=== PATIENT | female | born 1940 | race Caucasian/White ===

== ENCOUNTER 2018-06-15 21:41 | Emergency (ER) | payer OTHER ==
[~2018-06-15] VITALS: Ht 154.9 cm; Wt 47.6 kg
[2018-06-15 22:04] VITALS: BP_SYST 149
[2018-06-15] MEDS ORDERED: BACITRACIN 1 GM OINT TP ONE (22:30)
[2018-06-15] MEDS ORDERED: DIPH-TET-PERTUS Vaccine 0.5 ML VIAL (ADACEL) IM ONE (22:30)
[2018-06-15] MEDS ORDERED: LIDOCAINE/EPI 1% 1:100000 20 ML VIAL IJ ONE (22:30)
[2018-06-16 01:00] VITALS: BP_SYST 132
== END 2018-06-16 01:00 | disposition home or self-care (01) ==
LOC: SED 21:41
DX: S01.111A Laceration without foreign body of right eyelid and periocular area, initial encounter (principal); S51.811A Laceration without foreign body of right forearm, initial encounter; S46.911A Strain of unspecified muscle, fascia and tendon at shoulder and upper arm level, right arm, initial encounter; G20 Parkinson's disease; I10 Essential (primary) hypertension; W19.XXXA Unspecified fall, initial encounter; Y93.89 Activity, other specified; Y92.89 Other specified places as the place of occurrence of the external cause; Y99.8 Other external cause status
CPT/HCPCS: 70450-TC; 73060-TC; 90715; 99284

== ENCOUNTER 2018-10-03 22:52 | Emergency (ER) | payer OTHER ==
[~2018-10-03] VITALS: Ht 162.6 cm; Wt 54.4 kg
[2018-10-03 22:52] VITALS: BP_SYST 174
[2018-10-03] MEDS ORDERED: AMAN100C16 PO (23:16)
[2018-10-03] MEDS ORDERED: AMLO5TAB4 PO (23:17)
[2018-10-03] MEDS ORDERED: LIP10 PO (23:18)
[2018-10-03] MEDS ORDERED: BUPR-84 PO (23:19)
[2018-10-03] MEDS ORDERED: CARB-64 PO (23:20)
[2018-10-03] MEDS ORDERED: IBUP-1969 PO (23:21)
[2018-10-03] MEDS ORDERED: DOCU-144 PO (23:21)
[2018-10-03] MEDS ORDERED: METO-542 (23:23)
[2018-10-03] MEDS ORDERED: RASA1TAB4 PO (23:24)
[2018-10-03] MEDS ORDERED: NACL 0.9% 500 ML IV ONE (23:30)
[2018-10-03] MEDS ORDERED: REM15 PO (23:32)
[2018-10-03] MEDS ORDERED: ROPI4TAB3 PO (23:33)
[2018-10-03] MEDS ORDERED: CYAN1TAB47 PO (23:34)
[2018-10-03] MEDS ORDERED: CHOL100062 PO (23:35)
[2018-10-03] MEDS ORDERED: ZOLP5TAB2 PO (23:36)
[2018-10-04 00:15] LABS: BASOPHILS % (AUTO) 0.4 % (0.0-2.0); EOSINOPHILS # (AUTO) 0.2 K/uL (0.0-0.4); EOSINOPHILS % (AUTO) 3.1 % (0.0-4.0); HEMATOCRIT 41.5 % (36-48); HEMOGLOBIN 13.8 g/dL (12.0-16.0); LYMPHOCYTES # (AUTO) 1.2 K/uL (1.0-5.5); LYMPHOCYTES % (AUTO) 18.1 % (20.5-51.5); MEAN CORPUSCULAR HEMOGLOBIN 31 pg (27-31); MEAN CORPUSCULAR HGB CONC 33 % (32-36); MEAN CORPUSCULAR VOLUME 92 fL (79.0-98.0); MONOCYTES # (AUTO) 0.6 K/uL (0.0-1.0); MONOCYTES % (AUTO) 9.8 % (1.7-9.3); NEUTROPHILS # (AUTO) 4.4 K/uL (1.8-7.7); NEUTROPHILS % (AUTO) 68.6 % (40.0-70.0); PLATELET COUNT (AUTO) 190 K/uL (130-430); RED CELL DISTRIBUTION WIDTH 13.9 % (9.0-15.0); WHITE BLOOD COUNT (AUTO) 6.4 K/uL (4.8-10.8)
[2018-10-04 00:36] LABS: INR 0.9 (0.8-1.2); PROTHROMBIN TIME 9.7 SECS (9.5-12.5)
[2018-10-04 00:44] LABS: ANION GAP 5 (5-15); CALCIUM 9.5 mg/dL (8.4-11.0); CHLORIDE 108 mmol/L (98-107); CREATININE 0.94 mg/dL (0.55-1.30); GLUCOSE 104 mg/dL (70-99); POTASSIUM 3.8 mmol/L (3.5-5.1); SODIUM SERUM 141 mmol/L (136-145); UREA NITROGEN, BLOOD 18 mg/dL (8-21)
[2018-10-04 00:49] LABS: ALANINE AMINOTRANSFERASE 14 U/L (12-78); ALBUMIN 3.7 g/dL (3.4-4.8); ASPARTATE AMINOTRANSFERASE 14 U/L (10-37); TOTAL BILIRUBIN 0.4 mg/dL (0.0-1.0)
[2018-10-04 01:09] LABS: BILIRUBIN,URINE NEGATIVE (NEGATIVE); BLOOD, URINE NEGATIVE (NEGATIVE); CLARITY/URINE CLEAR (CLEAR); COLOR,URINE YELLOW (YELLOW); GLUCOSE,URINE NEGATIVE (NEGATIVE); KETONES,URINE NEGATIVE (NEGATIVE); LEUKOCYTE ESTERASE ,URINE NEGATIVE (NEGATIVE); NITRITE, URINE NEGATIVE (NEGATIVE); PROTEIN URINE NEGATIVE (NEGATIVE); UROBILINOGEN,URINE 0.2 (0.2-1.0)
[2018-10-04 01:27] VITALS: BP_SYST 164
== END 2018-10-04 01:27 ==
LOC: SED 22:52
DX: S00.81XA Abrasion of other part of head, initial encounter (principal); I13.0 Hypertensive heart and chronic kidney disease with heart failure and stage 1 through stage 4 chronic kidney disease, or unspecified chronic kidney disease; R79.1 Abnormal coagulation profile; N18.3 Chronic kidney disease, stage 3 (moderate); Z79.899 Other long term (current) drug therapy; W01.0XXA Fall on same level from slipping, tripping and stumbling without subsequent striking against object, initial encounter; Y93.01 Activity, walking, marching and hiking; Y92.89 Other specified places as the place of occurrence of the external cause; Y99.8 Other external cause status
CPT/HCPCS: 36415; 70450; 72125; 80053; 81003; 85025; 85610; 85730; 99285; J7030; 93005

== ENCOUNTER 2019-03-25 18:30 | Inpatient (IN) | payer MEDICARE, OTHER ==
[~2019-03-25] VITALS: Ht 165.1 cm; Wt 54.4 kg
[2019-03-25 18:30] VITALS: BP_SYST 167
[~2019-03-25 18:30] MED LIST: AMAN100C16 PO; AMLO5TAB4 PO; BUPR-84 PO; CARB-64 PO; CHOL100062 PO; CYAN1TAB47 PO; DOCU-144 PO; IBUP-1969 PO; LIP10 PO; METO-542; RASA1TAB4 PO; REM15 PO; ROPI4TAB3 PO; ZOLP5TAB2 PO
--- NOTE | 2019-03-25 18:30 | NUR ---
Patient brought in by EMS from [facility] for severe respiratory distress. Per EMS, while at [facility] [place] in [facility], patient began having respiratory dress. patient is tachycardic, with rhonchi auscultated throughout. RT at bedside. MD at bedside.
--- NOTE | 2019-03-25 18:30 | NUR ---
Patient to ER bed 1 to gown for evaluation. Side rails up. Assumed care.
--- NOTE | 2019-03-25 18:31 | NUR ---
ER Dr. Rodriguez at bedside examining patient.
[2019-03-25] MEDS ORDERED: NACL 0.9% 1,000 ML IV ONE ×2 (18:32→20:30)
[2019-03-25] MEDS ORDERED: IPRATROPIUM BROM 0.5 MG/2.5 ML VIAL.NEB (ATROVENT) INH ONE (18:45)
[2019-03-25] MEDS ORDERED: methylPREDNISolone SOD SUCC/PF 62.5 MG/ML VIAL IVP ONE (18:45)
[2019-03-25] MEDS ORDERED: ALBUTEROL SULFATE 0.083% 2.5 MG/3 ML VIAL.NEB INH ONE (18:45)
[2019-03-25] MEDS ORDERED: LORazepam 2 MG/ML VIAL IVP ONE (19:00)
[2019-03-25 19:04] LABS: BASOPHILS % (AUTO) 0.3 % (0.0-2.0); EOSINOPHILS # (AUTO) 0.4 K/uL (0.0-0.4); EOSINOPHILS % (AUTO) 5.4 % (0.0-4.0); HEMATOCRIT 40.7 % (36-48); HEMOGLOBIN 13.4 g/dL (12.0-16.0); LYMPHOCYTES # (AUTO) 2.1 K/uL (1.0-5.5); LYMPHOCYTES % (AUTO) 32.2 % (20.5-51.5); MEAN CORPUSCULAR HEMOGLOBIN 30 pg (27-31); MEAN CORPUSCULAR HGB CONC 33 % (32-36); MEAN CORPUSCULAR VOLUME 92 fL (79.0-98.0); MONOCYTES # (AUTO) 0.7 K/uL (0.0-1.0); MONOCYTES % (AUTO) 11.2 % (1.7-9.3); NEUTROPHILS # (AUTO) 3.4 K/uL (1.8-7.7); NEUTROPHILS % (AUTO) 50.9 % (40.0-70.0); PLATELET COUNT (AUTO) 176 K/uL (130-430); RED BLOOD CELL COUNT(AUTO) 4.45 MIL/uL (4.2-6.2); RED CELL DISTRIBUTION WIDTH 14.8 % (9.0-15.0); WHITE BLOOD COUNT (AUTO) 6.6 K/uL (4.8-10.8)
--- NOTE | 2019-03-25 19:18 | NUR ---
Endorsed bedside report to Yuridia GARCIA using SBAR approach for continuation of care.
[2019-03-25 19:19] LABS: ANION GAP 11 (5-15); CALCIUM 8.3 mg/dL (8.4-11.0); CHLORIDE 106 mmol/L (98-107); CREATININE 1.19 mg/dL (0.55-1.30); GLUCOSE 138 mg/dL (70-99); POTASSIUM 3.3 mmol/L (3.5-5.1); PROTHROMBIN TIME 9.8 SECS (9.5-12.5); SODIUM SERUM 142 mmol/L (136-145); UREA NITROGEN, BLOOD 24 mg/dL (8-21)
[2019-03-25 19:25] LABS: ALANINE AMINOTRANSFERASE 11 U/L (12-78); ALBUMIN 3.9 g/dL (3.4-4.8); AMYLASE 92 U/L (0-100); ASPARTATE AMINOTRANSFERASE 23 U/L (10-37); LIPASE 92 U/L (73-393); TOTAL BILIRUBIN 0.4 mg/dL (0.0-1.0)
[2019-03-25] MEDS ORDERED: BISA-79 PO (19:33)
--- NOTE | 2019-03-25 19:33 | NUR ---
Medication reconciliation completed with information provided by Trevor Roberts. Any prior medication reconciliation on file was reviewed and corrected.
[2019-03-25] MEDS ORDERED: METO25TA3 PO (19:59)
[2019-03-25] MEDS ORDERED: MULT-1189 PO (20:01)
[2019-03-25] MEDS ORDERED: REM15 PO (20:02)
[2019-03-25] MEDS ORDERED: CHOL100035 PO (20:06)
--- NOTE | 2019-03-25 20:12 | NUR ---
Medication reconciliation completed with information provided by Trevor Roberts. Any prior medication reconciliation on file was reviewed and corrected.
[2019-03-25] MEDS ORDERED: IOHEXOL 350 mgI/mL, 150 ML INFUS..BTL IV ONE (20:43)
--- NOTE | 2019-03-25 21:10 | NUR ---
Pt medicated per md orders.
--- NOTE | 2019-03-25 21:24 | NUR ---
Pt wheeled to CT scan by kathleen accompanied by Yuridia GARCIA
[2019-03-25] MEDS ORDERED: AZITHROMYCIN 500 MG in NS 250 ML IV ONE (22:30)
--- NOTE | 2019-03-25 22:30 | NUR ---
Pt medicated with antibiotic and normal saline per md order. Will continue to monitor.
[2019-03-25] MEDS ORDERED: AZITHROMYCIN 500 MG/VIAL (ZITHROMAX) IV ONE (23:06)
--- NOTE | 2019-03-25 23:15 | NUR ---
urine collected via alfonso catheter. Urine sent to lab.
[2019-03-25 23:47] LABS: BILIRUBIN,URINE NEGATIVE (NEGATIVE); BLOOD, URINE NEGATIVE (NEGATIVE); CLARITY/URINE CLEAR (CLEAR); COLOR,URINE YELLOW (YELLOW); GLUCOSE,URINE NEGATIVE (NEGATIVE); KETONES,URINE NEGATIVE (NEGATIVE); LEUKOCYTE ESTERASE ,URINE NEGATIVE (NEGATIVE); NITRITE, URINE NEGATIVE (NEGATIVE); PROTEIN URINE NEGATIVE (NEGATIVE); UROBILINOGEN,URINE 0.2 (0.2-1.0)
[2019-03-26] VITALS (24 sets, daily range): BP systolic 115–177
--- NOTE | 2019-03-26 00:27 | NUR ---
MD Nance talking to pt family regarding DNR status. End of life care decisions discussed with pt family by Dr. Nance. Opportunity for questions and concerns addressed. Patient's code status is DNR paperwork completed and placed in chart.
--- NOTE | 2019-03-26 01:03 | NUR ---
ER Dr. Murcia at bedside examining patient.
[2019-03-26] MEDS ORDERED: ACETAMINOPHEN 325 MG TABLET PO PRN (01:30)
[2019-03-26] MEDS ORDERED: MORPHINE 2 MG/ML INJ. SYRINGE IVP PRN ×2 (01:30)
[2019-03-26] MEDS ORDERED: ALBUTEROL SULFATE 0.083% 2.5 MG/3 ML VIAL.NEB INH PRN (01:30)
[2019-03-26] MEDS ORDERED: BISACODYL 5 MG TABLET.DR (DULCOLAX) PO PRN (01:30)
[2019-03-26] MEDS ORDERED: ONDANSETRON HCL 4 MG/2 ML VIAL IVP PRN (01:30)
[2019-03-26] MEDS ORDERED: ZOLPIDEM TARTRATE 5 MG TABLET PO PRN (01:30)
--- NOTE | 2019-03-26 01:33 | NUR ---
Patient will be admitted to [facility]. Admitted to ICU unit. Will go to room ICU bed 1. Belongings list completed. Complete and up to date summary report printed. SBAR report to be given at bedside with opportunity for questions.
--- NOTE | 2019-03-26 01:34 | NUR ---
Transfer to ICU Bed 1 via ACLS protocol. Licensed nurse present. IV present no signs or symptoms of infiltration.
--- NOTE | 2019-03-26 01:52 | NUR ---
ADMISSION Pt admitted to ICU 1 via gurney accompanied by ER ACLS staff. No belongings with patient. Pt SR on monitor. Pt response to name, has eyes closed. Pt on 2L/min nasal cannula. O2 saturation 99%. 3 IV sites present, LAC 20ga, Right foot 20ga, and right wrist 20ga. All patent, no redness or swelling noted @ sites. Harman catheter draining yellow color urine. Pt on low air loss mattress.
[2019-03-26] MEDS ORDERED: NACL 0.9% 1,000 ML IV ONE (02:00)
[2019-03-26] MEDS ORDERED: VANCOMYCIN HCL 1,000 MG in NS 250 ML IV ONE (03:00)
--- NOTE | 2019-03-26 03:05 | NUR ---
DR ADI Call placed to Dr Dai to give update on patient.
[2019-03-26] MEDS ORDERED: cefTRIAXone 1 GM IVPB PREMIX 50 ML IV ONE (03:18)
[2019-03-26] MEDS ORDERED: VANCOMYCIN HCL 1000 MG/VIAL IV ONE (03:19)
--- NOTE | 2019-03-26 04:00 | NUR ---
ASSUMED CARE OF PT. PT RESTING. NO DISTRESS NOTED.
[2019-03-26] MEDS: NACL 0.9% 1,000 ML IV SCH ×3 (04:40→20:46)
[2019-03-26] MEDS ORDERED: FLU VACC TS2019(65UP)/MF59C/PF 45 MCG/0.5 ML SYRINGE I.M. PRN (06:00)
--- NOTE | 2019-03-26 06:00 | NUR ---
SLEPT FOR LONG PERIODS OF TIME. [facility]O GOOD. ASSISTS WITH REPOSITIONING. REMAINS IN GUARDED CONDITION.
[2019-03-26 06:29] LABS: BASOPHILS % (AUTO) 0.1 % (0.0-2.0); HEMATOCRIT 36.5 % (36-48); LYMPHOCYTES # (AUTO) 0.3 K/uL (1.0-5.5); MEAN CORPUSCULAR HEMOGLOBIN 30 pg (27-31); MEAN CORPUSCULAR HGB CONC 33 % (32-36); MEAN CORPUSCULAR VOLUME 92 fL (79.0-98.0); MONOCYTES # (AUTO) 0.1 K/uL (0.0-1.0); MONOCYTES % (AUTO) 1.3 % (1.7-9.3); NEUTROPHILS # (AUTO) 5.3 K/uL (1.8-7.7); NEUTROPHILS % (AUTO) 92.6 % (40.0-70.0); PLATELET COUNT (AUTO) 145 K/uL (130-430); RED BLOOD CELL COUNT(AUTO) 3.99 MIL/uL (4.2-6.2); RED CELL DISTRIBUTION WIDTH 14.7 % (9.0-15.0); WHITE BLOOD COUNT (AUTO) 5.7 K/uL (4.8-10.8)
[2019-03-26] MEDS: cefTRIAXone 1 GM IVPB PREMIX 50 ML IV SCH (06:45)
[2019-03-26 07:01] LABS: ALBUMIN 3.3 g/dL (3.4-4.8); ANION GAP 12 (5-15); ASPARTATE AMINOTRANSFERASE 26 U/L (10-37); CALCIUM 7.9 mg/dL (8.4-11.0); CHLORIDE 108 mmol/L (98-107); CREATININE 0.91 mg/dL (0.55-1.30); GLUCOSE 177 mg/dL (70-99); POTASSIUM 4.1 mmol/L (3.5-5.1); SODIUM SERUM 142 mmol/L (136-145); TOTAL BILIRUBIN 0.2 mg/dL (0.0-1.0); UREA NITROGEN, BLOOD 17 mg/dL (8-21)
--- NOTE | 2019-03-26 07:10 | NUR ---
LAB REPORTED TROPONIN OF 0.090. RELAYED TO MARTA SANZ.
[2019-03-26 07:24] LABS: ALANINE AMINOTRANSFERASE 24 U/L (12-78)
--- NOTE | 2019-03-26 07:30 | NUR ---
OPENING NOTE: RECEIVED PATIENT FROM YONI HERNANDEZ RN. PATIENT LAYING IN BED WITH EYES CLOSED, ABLE TO RESPOND AND MOVE TO LIGHT STIMULI. PATIENT ON 2L NC AND SATURATING WITHIN NORMAL LIMITS. NO ACUTE SIGNS OF RESP DISTRESS, NO SOB. BREATHING EVEN AND UNLABORED. IV SITES INTACT, NO REDNESS OR REDNESS TO SITE. BED AT LOWEST POSITION, CALL LIGHT IN REACH, SIDE RAILX3. CONTINUE TO MONITOR.
[2019-03-26] MEDS: AMANTADINE HCL 100 MG CAP PO SCH (08:31)
[2019-03-26] MEDS: amLODIPine BESYLATE 5 MG TABLET PO SCH (08:32)
[2019-03-26] MEDS: METOPROLOL SUCCINATE 25 MG TAB.SR.24H (TOPROL XL) PO SCH (08:33)
[2019-03-26] MEDS: buPROPion HCL 150 MG TABLET.SA PO SCH (08:33)
[2019-03-26] MEDS: ATORVASTATIN 10 MG TABLET PO SCH (08:33)
[2019-03-26] MEDS: ENOXAPARIN SODIUM 40 MG/0.4 ML SYRINGE SUBCUT SCH (08:35)
[2019-03-26] MEDS: CARBIDOPA/LEVODOPA CR 50/200 MG TAB PO SCH ×2 (08:41→20:47)
--- NOTE | 2019-03-26 10:19 | NUR ---
Nutrition Update Abilio Scale 17 noted. Pt admitted for pneumonia/sepsis. Diet: cardiac BMI: 22.5 kg/m2 RD to follow per nutrition care standards.
--- NOTE | 2019-03-26 11:35 | NUR ---
REQUESTED RECORDS OF LAST HOSPITALIZATION FROM [facility]. FAXED THE REQUEST, SPOKE TO SHASHA. RECEIVED THE RECORDS REQUESTED BY DR RICHARD, THE ATTENDING MD. HANDED RECORDS TO JONATHAN, CHARGE NURSE.
--- NOTE | 2019-03-26 12:00 | NUR ---
ROUNDING: PATIENT IS MORE AWAKE AND ALERT, ABLE TO RESPOND VERBALLY AND OPEN EYES. PATIENT SPEAKING TO HER FAMILY MEMBERS (SPOUSE, SON, DAUGHTER). PATIENT FEELING BETTER. ON 2L NC AND TOLERATING WELL. NO ACUTE SIGNS OF RESP DISTRESS. CONTINUE TO MONITOR.
[2019-03-26] MEDS ORDERED: hydrALAZINE HCL 20 MG/ML VIAL IVP ONE (13:45)
[2019-03-26] MEDS ORDERED: methylPREDNISolone SOD SUCC 40 MG/ML VIAL IVP ONE (16:45)
[2019-03-26] MEDS: hydrALAZINE HCL 20 MG/ML VIAL IVP PRN (17:50)
--- NOTE | 2019-03-26 19:15 | NUR ---
OPENING NOTE SBAR REPORT RECEIVED FROM EDGAR GARCIA. CARE ASSUMED. PT LAYING IN BED ANOX2. PT ON 2L NASAL CANULA. O2 SAT 100%. RESPIRATIONS EQUAL AND UNLABORED. RHONCHI THROUGH OUT LUNGS. DIMINISHED AT BILATERAL BASES. PT SINUS RHYTHM ON MONITOR. PT HAS 20 G IV RIGHT FOREARM RUNNING NORMAL SALINE @ 125 ML/HR. PT HAS 20 G IV LEFT AC SALINE LOCKED. NO EDEMA NOTED. ABDOMEN SOFT NON DISTENDED. BOWEL SOUNDS ACTIVE. CROOK CATHETER IN PLACE DRAINING TO GRAVITY. URINE CLEAR AND YELLOW. SKIN INTACT. BED LOCKED IN LOWEST POSITION. SAFETY PRECAUTIONS IN PLACE. CALL LIGHT WITH IN REACH. WILL CONTINUE TO MONITOR.
[2019-03-26] MEDS: ALBUTEROL SULFATE 0.083% 2.5 MG/3 ML VIAL.NEB INH SCH (20:12)
[2019-03-26] MEDS: IPRATROPIUM BROM 0.5 MG/2.5 ML VIAL.NEB (ATROVENT) INH SCH (20:12)
[2019-03-26] MEDS: DOCUSATE SODIUM 100 MG CAPSULE PO SCH (20:47)
[2019-03-26] MEDS: MIRTAZAPINE 15 MG TABLET PO SCH (20:47)
[2019-03-26] MEDS: methylPREDNISolone SOD SUCC/PF 62.5 MG/ML VIAL IVP SCH (22:23)
[2019-03-26] MEDS ORDERED: AZITHROMYCIN 500 MG in NS 250 ML IV SCH (23:00)
[2019-03-27] VITALS (10 sets, daily range): BP systolic 135–179
[2019-03-27] MEDS: IPRATROPIUM BROM 0.5 MG/2.5 ML VIAL.NEB (ATROVENT) INH SCH ×4 (01:42→20:45)
[2019-03-27] MEDS: ALBUTEROL SULFATE 0.083% 2.5 MG/3 ML VIAL.NEB INH SCH ×4 (01:42→20:45)
--- NOTE | 2019-03-27 04:20 | NUR ---
IV Pt confused and pulled out IV. New IV started on RFA 20g. Flush w/ 10cc Ns, good blood return. Pt educated provided. Will endorse to RN taking care of Pt.
[2019-03-27] MEDS: NACL 0.9% 1,000 ML IV SCH ×2 (04:50→15:00)
[2019-03-27] MEDS: cefTRIAXone 1 GM IVPB PREMIX 50 ML IV SCH (06:25)
[2019-03-27] MEDS: VANCOMYCIN HCL 1 GM/NS PREMIX 250 ML IV SCH (06:32)
[2019-03-27] MEDS: methylPREDNISolone SOD SUCC/PF 62.5 MG/ML VIAL IVP SCH ×3 (06:34→20:28)
[2019-03-27 06:46] LABS: HEMATOCRIT 34.3 % (36-48); HEMOGLOBIN 11.5 g/dL (12.0-16.0); LYMPHOCYTES # (AUTO) 0.4 K/uL (1.0-5.5); LYMPHOCYTES % (AUTO) 5.7 % (20.5-51.5); MEAN CORPUSCULAR HEMOGLOBIN 31 pg (27-31); MEAN CORPUSCULAR HGB CONC 34 % (32-36); MEAN CORPUSCULAR VOLUME 91 fL (79.0-98.0); MONOCYTES # (AUTO) 0.2 K/uL (0.0-1.0); MONOCYTES % (AUTO) 2.1 % (1.7-9.3); NEUTROPHILS # (AUTO) 6.8 K/uL (1.8-7.7); NEUTROPHILS % (AUTO) 92.2 % (40.0-70.0); PLATELET COUNT (AUTO) 150 K/uL (130-430); RED BLOOD CELL COUNT(AUTO) 3.78 MIL/uL (4.2-6.2); RED CELL DISTRIBUTION WIDTH 14.5 % (9.0-15.0); WHITE BLOOD COUNT (AUTO) 7.4 K/uL (4.8-10.8)
--- NOTE | 2019-03-27 07:15 | NUR ---
CLOSING NOTE PT LAYING IN BED SLEEPING. NO SIGNS OR SYMPTOMS OF ACUTE DISTRESS NOTED. SBAR REPORT GIVEN TO VAMSHI GARCIA. CARE ENDORSED.
[2019-03-27 07:18] LABS: ALANINE AMINOTRANSFERASE 7 U/L (12-78); ANION GAP 11 (5-15); ASPARTATE AMINOTRANSFERASE 20 U/L (10-37); CALCIUM 8.4 mg/dL (8.4-11.0); CHLORIDE 110 mmol/L (98-107); CREATININE 0.79 mg/dL (0.55-1.30); GLUCOSE 163 mg/dL (70-99); POTASSIUM 3.4 mmol/L (3.5-5.1); SODIUM SERUM 143 mmol/L (136-145); THYROID STIMULATING HORMONE 0.47 uIu/mL (0.36-3.74); TOTAL BILIRUBIN 0.2 mg/dL (0.0-1.0); UREA NITROGEN, BLOOD 18 mg/dL (8-21)
--- NOTE | 2019-03-27 07:30 | NUR ---
Opening Note Received plan of care via sbar from endorsing nurse Lisa GARCIA. Completed patient round.
[2019-03-27] MEDS: buPROPion HCL 150 MG TABLET.SA PO SCH (08:13)
[2019-03-27] MEDS: AMANTADINE HCL 100 MG CAP PO SCH (08:13)
[2019-03-27] MEDS: METOPROLOL SUCCINATE 25 MG TAB.SR.24H (TOPROL XL) PO SCH (08:13)
[2019-03-27] MEDS: ENOXAPARIN SODIUM 40 MG/0.4 ML SYRINGE SUBCUT SCH (08:14)
[2019-03-27] MEDS: ATORVASTATIN 10 MG TABLET PO SCH (08:14)
[2019-03-27] MEDS: amLODIPine BESYLATE 5 MG TABLET PO SCH (08:14)
[2019-03-27] MEDS: CARBIDOPA/LEVODOPA CR 50/200 MG TAB PO SCH ×2 (08:49→20:29)
[2019-03-27] MEDS ORDERED: KCL 20 mEq in 100 mL (PREMIX) 100 ML IV ONE (09:45)
--- NOTE | 2019-03-27 09:55 | NUR ---
Dr. Almeida at bedside. Reported K 3.3. Received orders for K replacement. MD will place order.
--- NOTE | 2019-03-27 12:11 | NUR ---
Nutrition Assessment (short note d/t high patient load) A - RD reviewed pertinent nutrition-related info via EMR (physician notes/nursing notes/labs/meds/nursing care trends/care activity). Admission Dx: Pneumonia/sepsis PMH: Parkinson's Dz, COPD, HTN per physician notes Current Diet Order/Nutrition Support: Cardiac x1 day Ht: 65"/5'5" Wt: 120#/55 kg IBW: 125#/57 kg %IBW: 96% UBW: 120#/55 kg %UBW: 100% BMI: 20 kg/m2 (underweight for geriatric age) Subjective Info: RD Notification received for unspecified nutritional problem. Pt was seen resting in bed w/ daughter at bedside. Pt reported excellent appetite, and confirmed that she ate a banana, [place] toast, 1/2 of bran flakes cereal, and orange juice at breakfast which her RN reported as well. RN stated she ate about 80% of her meal. Pt reported use of partials, but no chewing/swallowing problems. Anthropometrics verified. Pt denied any recent wt changes. Per EMR, PO intake average of 25% x2 meals. Pt reported last BM was yesterday -- no difficulties w/ constipation/diarrhea. RD offered Ensure Enlive TID ONS for optimal nutrition, but pt was not interested. RD offered snacks w/ meals -- pt was interested in fruit and chicken salad w/ meals. RD notified FNS staff to provide. ESTIMATED NUTRITIONAL NEEDS CALORIES/DAY: 0814-5691 kcal/day (30-35 kcal/kg CBW for sepsis) PROTEIN/DAY: 83-110 gm/day (1.5-2 gm/kg CBW for sepsis) FLUID/DAY: 1.4-1.7 L/day (25-30 ml/kg CBW for geriatric maintenance) D - Increased nutritional needs related to metabolic demands as evidenced by estimated nutritional requirements for sepsis and low PO intake records. I - Recommend continuing cardiac diet. Encourage increase PO intakes. Snacks w/ meals. Pt was not interested in Ensure Enlive ONS. M - Monitor appetite and PO intakes w/ goal of pt meeting at least 75% of estimated nutritional needs, labs trending WNL, normal GI function, and skin integrity/wt maintenance E - High risk; RD to F/U within 2-3 days
--- NOTE | 2019-03-27 12:22 | NUR ---
Dietitian Recommendations * Recommend continuing cardiac diet * Encourage increase PO intakes * Snacks w/ meals * Pt was not interested in Ensure Enlive ONS LP, RD Please refer to Nutrition Assessment for details.
--- NOTE | 2019-03-27 13:30 | NUR ---
Patient complained of difficulty breathing. Auscultated wheezing and RT called. Breathing treatment given and patient recovered. O2 stat at 100%. Patient is tachypneic.
[2019-03-27] MEDS ORDERED: methylPREDNISolone SOD SUCC/PF 62.5 MG/ML VIAL IVP ONE (14:00)
[2019-03-27] MEDS: hydrALAZINE HCL 20 MG/ML VIAL IVP PRN (15:57)
--- NOTE | 2019-03-27 17:00 | NUR ---
Transfer to Tele Patient transfered to room 121 C following ACLS guidelines. Patient is awake, alert, oriented X 4. Patient oriented to room, call light, toileting, pain management and safety-teach back done. Patient informed that Inez GARCIA will be her nurse and SBAR given at bedside. Personal belongings checked and Belongings List documented. Call light within reach.
--- NOTE | 2019-03-27 19:45 | NUR ---
OPENING NOTES Received report from morning shift RN. Patient is resting in bed, awake, alert, oriented x 3, breathing evenly and nonlabored on 2L of oxygen via NC. was at the bedside. Patient has an IV on the right forearm 20g, IVF running, and an IV on the left ac 20g SL, patent and benign, no s/s of infiltration or infection noted. Patient has a alfonso catheter, secured and draining by gravity. Educated patient and family on plan of care, call light system, fall/safety/aspiration precautions. Patient and stated understanding with return demonstration. No other needs at this time. Will continue to monitor.
--- NOTE | 2019-03-27 20:28 | NUR ---
MEDICATIONS/ROUNDS Patient is resting in bed, awake, breathing evenly and nonlabored on 2L of oxygen via NC, at bedside. Educated patient and on medications, patient and stated understanding. Patient prefers to crush meds and put into apple sauce. Administered medications, patient tolerated them well. No s/s of distress at this time, no other needs at this time. Fall/safety/aspiration precautions.
[2019-03-27] MEDS: DOCUSATE SODIUM 100 MG CAPSULE PO SCH (20:29)
[2019-03-27] MEDS: MIRTAZAPINE 15 MG TABLET PO SCH (20:30)
--- NOTE | 2019-03-27 22:30 | NUR ---
ROUNDS Patient is resting in bed, eyes closed, breathing evenly and nonlabored on 2L of oxygen via NC. No s/s of distress at this time, no other needs at this time. Fall/safety/aspiration precautions.
[2019-03-28 00:02] VITALS: BP_SYST 156
--- NOTE | 2019-03-28 00:30 | NUR ---
ROUNDS Patient is resting in bed, eyes closed, breathing evenly and nonlabored on 2L of oxygen via NC. No s/s of distress at this time, no other needs at this time. Fall/safety/aspiration precautions. Will continue to monitor.
[2019-03-28] MEDS: IPRATROPIUM BROM 0.5 MG/2.5 ML VIAL.NEB (ATROVENT) INH SCH ×4 (01:39→20:15)
[2019-03-28] MEDS: ALBUTEROL SULFATE 0.083% 2.5 MG/3 ML VIAL.NEB INH SCH ×4 (01:39→20:15)
[2019-03-28] MEDS: NACL 0.9% 1,000 ML IV SCH (03:43)
[2019-03-28] MEDS: cefTRIAXone 1 GM IVPB PREMIX 50 ML IV SCH (05:23)
[2019-03-28] MEDS: VANCOMYCIN HCL 1 GM/NS PREMIX 250 ML IV SCH (05:24)
--- NOTE | 2019-03-28 05:49 | NUR ---
MEDICATIONS/ROUNDS Patient is resting in bed, eyes closed, breathing evenly and nonlabored on 2L of oxygen via NC. Educated patient on medications due, patient did not respond. Administered due medication, patient is tolerating it well. No s/s of distress at this time, no other needs at this time. Fall/safety/aspiration precautions.
--- NOTE | 2019-03-28 06:18 | NUR ---
CLOSING NOTE Patient sleeping, breathing is even and unlabored, remains on 02 2L NC, IV line remains intact, IV antibiotics infusing at this time, alfonso catheter secured and to gravity, draining yellow urine. Patient needs attended to, fall and safety measures maintained through out the shift, will continue to monitor until report given to am nurse.
--- NOTE | 2019-03-28 07:40 | NUR ---
INITIAL NOTE PT AWAKE, ON 3L NASAL CANNULA TOLERATING WELL. IV SALINE LOCKED. CROOK DRAINING TO GRAVITY. DENIES ANY PAIN OR DISCOMFORT. CALL LIGHT WITHIN REACH, BED IN LOW AND LOCKED POSITION WITH BED ALARM ON.
[2019-03-28 08:00] VITALS: BP_SYST 158
[2019-03-28 08:03] LABS: BASOPHILS % (AUTO) 0.1 % (0.0-2.0); HEMATOCRIT 41.6 % (36-48); HEMOGLOBIN 13.8 g/dL (12.0-16.0); LYMPHOCYTES # (AUTO) 0.7 K/uL (1.0-5.5); LYMPHOCYTES % (AUTO) 6.7 % (20.5-51.5); MEAN CORPUSCULAR HEMOGLOBIN 30 pg (27-31); MEAN CORPUSCULAR HGB CONC 33 % (32-36); MEAN CORPUSCULAR VOLUME 90 fL (79.0-98.0); MONOCYTES # (AUTO) 0.5 K/uL (0.0-1.0); MONOCYTES % (AUTO) 4.6 % (1.7-9.3); NEUTROPHILS # (AUTO) 8.8 K/uL (1.8-7.7); NEUTROPHILS % (AUTO) 88.6 % (40.0-70.0); PLATELET COUNT (AUTO) 153 K/uL (130-430); RED CELL DISTRIBUTION WIDTH 14.9 % (9.0-15.0)
[2019-03-28 08:39] LABS: ALANINE AMINOTRANSFERASE 14 U/L (12-78); ALBUMIN 3.6 g/dL (3.4-4.8); ANION GAP 9 (5-15); ASPARTATE AMINOTRANSFERASE 22 U/L (10-37); CALCIUM 8.8 mg/dL (8.4-11.0); CHLORIDE 110 mmol/L (98-107); CREATININE 0.84 mg/dL (0.55-1.30); GLUCOSE 129 mg/dL (70-99); POTASSIUM 3.5 mmol/L (3.5-5.1); SODIUM SERUM 141 mmol/L (136-145); TOTAL BILIRUBIN 0.3 mg/dL (0.0-1.0); UREA NITROGEN, BLOOD 19 mg/dL (8-21)
--- NOTE | 2019-03-28 08:53 | NUR ---
DR. DOROTHY CHAVES AT BEDSIDE EXAMINING PT. PT REMAINS ON 3L NASAL CANNULA SATURATING 100%. MD TO ORDER SWALLOW EVAL. IF PT PASSES SWALLOW EVAL, PT MAY BE DISCHARGE BACK HOME. VERIFIED WITH READ BACK.
[2019-03-28] MEDS: methylPREDNISolone SOD SUCC/PF 62.5 MG/ML VIAL IVP SCH (09:09)
[2019-03-28] MEDS: CARBIDOPA/LEVODOPA CR 50/200 MG TAB PO SCH ×2 (09:10→21:53)
[2019-03-28] MEDS: ATORVASTATIN 10 MG TABLET PO SCH (09:10)
[2019-03-28] MEDS: amLODIPine BESYLATE 5 MG TABLET PO SCH (09:10)
[2019-03-28] MEDS: AMANTADINE HCL 100 MG CAP PO SCH (09:10)
[2019-03-28] MEDS: buPROPion HCL 150 MG TABLET.SA PO SCH (09:10)
[2019-03-28] MEDS: METOPROLOL SUCCINATE 25 MG TAB.SR.24H (TOPROL XL) PO SCH (09:11)
[2019-03-28] MEDS ORDERED: BUDE6HFA INH (09:34)
[2019-03-28] MEDS: ENOXAPARIN SODIUM 40 MG/0.4 ML SYRINGE SUBCUT SCH (09:34)
[2019-03-28] MEDS ORDERED: ALBMDI INH (09:34)
--- NOTE | 2019-03-28 09:41 | NUR ---
INCONTINENT OF BOWEL CLEANED PT AND CHANGED LINEN. PT TOLERATED WELL. REPOSITIONED PT FOR COMFORT.
[2019-03-28] MEDS ORDERED: LACT1CAP72 PO (09:43)
--- NOTE | 2019-03-28 09:44 | NUR ---
BHARGAV BUSBY. PAGED LEFT A VOICE MESSAGE FOR ARJUN DIALED [phone]
--- NOTE | 2019-03-28 11:45 | NUR ---
UP W/ PHYSICAL THERAPY UP WITH PHYSICAL THERAPY. PT ON 3L NASAL CANNULA, PT AMBULATING WITH FRONT WHEEL WALKER. PT HAVING BOWEL MOVEMENT WHILE AMBULATING. PHYSICAL THERAPY ASSISTED PT BACK TO BED. PT TOLERATED WELL. CLEANED AND CHANGED PATIENT.
[2019-03-28 12:00] VITALS: BP_SYST 152
--- NOTE | 2019-03-28 12:15 | NUR ---
Discharge Planning Noted arrange for pt at home order. Patient is a resident at [facility], unsure if SNF or [place]. Patient is managed by LYUDMILA/Fernando BELTRAN. Alerted Patricia RN and Lithograph Designer. Addendum: 03/28/19 at 1222 by Mica Gasca LCSW Phoned Fannie King/LYUDMILA [phone] and notified her of above.
--- NOTE | 2019-03-28 13:45 | NUR ---
RN ROUNDS PT RESTING IN BED, NO ACUTE DISTRESS NOTED, PT REMAINS ON 3L NC.
--- NOTE | 2019-03-28 13:45 | NUR ---
SWALLOW EVAL FOLLOW UP CALLED PROFESSIONAL SPEECH THERAPY LEFT A VOICEMAIL FOR PATIENT TO BE EVALUATED BY SPEECH THERPAIST.
--- NOTE | 2019-03-28 14:00 | NUR ---
DESATURATING ON ROOM AIR RESPIRATORY AT BEDSIDE. PT DESATING ON ROOM AIR AT 89-90%. PLACED 3L NC BACK ON. WILL CONTINUE TO MONITOR.
[2019-03-28 16:00] VITALS: BP_SYST 168
--- NOTE | 2019-03-28 16:00 | NUR ---
RN ROUNDS PT AWAKE, REMAINS ON 3L NASAL CANNULA. OFFERED CRANBERRY JUICE. NO WHEEZING AFTER ORAL INTAKE. WILL CONTINUE TO MONITOR.
--- NOTE | 2019-03-28 17:26 | NUR ---
SPOKE W/ ARJUN-SWALLOW KEHINDE DÍAZ WILL COME FIRST THING IN THE MORNING TOMORROW BEFORE 9AM.
--- NOTE | 2019-03-28 18:42 | NUR ---
CLOSING NOTE AT BEDSIDE FEEDING PT. PT TOLERATING FOOD. PT DENIES ANY WHEEZING AFTER ORAL INTAKE. CALL LIGHT WITHIN REACH, BED IN LOW AND LOCKED POSITION WITH BED ALARM ON. ALL NEEDS MET THROUGHOUT SHIFT. WILL CONTINUE TO MONITOR UNTIL PT CARE IS ENDORSED TO POT PRESS OPERATOR RN.
[2019-03-28 19:00] VITALS: BP_SYST 164
[2019-03-28 20:00] VITALS: BP_SYST 164
[2019-03-28] MEDS: MIRTAZAPINE 15 MG TABLET PO SCH (21:52)
[2019-03-28] MEDS: DOCUSATE SODIUM 100 MG CAPSULE PO SCH (21:52)
[2019-03-28] MEDS: PREDNISONE 10 MG TABLET PO SCH (21:53)
[2019-03-29 00:09] VITALS: BP_SYST 156
[2019-03-29] MEDS: IPRATROPIUM BROM 0.5 MG/2.5 ML VIAL.NEB (ATROVENT) INH SCH ×3 (01:00→13:38)
[2019-03-29] MEDS: ALBUTEROL SULFATE 0.083% 2.5 MG/3 ML VIAL.NEB INH SCH ×3 (01:00→13:38)
--- NOTE | 2019-03-29 05:52 | NUR ---
SWALLOWED SWALLOWED EVAL CALLED LEFT A MESSAGED FOR ARJUN SPEECH THERAPY
--- NOTE | 2019-03-29 08:00 | NUR ---
RN INITIAL NOTES RECEIVED PATIENT IN BED NOT IN ANY DISTRESS , WITH O2 INH VIA NC @ 2 LITER SATING 97%, PATIENT ABLE TO ANSWER QUESTIONS, NPO TILL SEEN BY THE SPEECH THERAPIST
[2019-03-29 08:15] VITALS: BP_SYST 170
[2019-03-29] MEDS: cefTRIAXone 1 GM IVPB PREMIX 50 ML IV SCH (08:49)
[2019-03-29] MEDS: CARBIDOPA/LEVODOPA CR 50/200 MG TAB PO SCH (08:51)
[2019-03-29] MEDS: AMANTADINE HCL 100 MG CAP PO SCH (08:52)
[2019-03-29] MEDS: PREDNISONE 10 MG TABLET PO SCH (08:53)
[2019-03-29] MEDS: ATORVASTATIN 10 MG TABLET PO SCH (08:53)
[2019-03-29] MEDS: METOPROLOL SUCCINATE 25 MG TAB.SR.24H (TOPROL XL) PO SCH (08:54)
[2019-03-29] MEDS: ENOXAPARIN SODIUM 40 MG/0.4 ML SYRINGE SUBCUT SCH (08:56)
[2019-03-29] MEDS ORDERED: amLODIPine BESYLATE 10 MG TABLET PO SCH (09:00)
--- NOTE | 2019-03-29 09:35 | NUR ---
S.T. SWALLOW EVAL SWALLOW EVAL COMPLETED. PT PRESENTS W/ MOD ORAL AND ML PHARYNGEAL DYSPHAGIA W/ ML DELAYED TRANSFER, PROLONGED MASTICATION, AND ML DELAYED SWALLOW AT TIMES. NO S/S OF ASPIRATION. REC: MECH SOFT FINELY CHOPPED DIET. THIN LIQUIDS OK. DETAILED EDUCATION GIVEN TO PT, , AND SON RE: POSITIONING DURING MEALS, AND MONITORING RESP STATUS DURING MEALS. THEY VERBALIZED UNDERSTANDING. NURSE AGATA NOTIFIED. [id number] CJ [id number] CJ [id number] CJ NOMS LEVEL 5
--- NOTE | 2019-03-29 09:45 | NUR ---
PASSED SWALLOW EVAL PATIENT SEEN BY SPEECH THERAPIST AND PASSED THE SWALLOW EVAL AND MEDS TOLERATED WITH APPLE SAUCE REQUESTED , FAMILY AT BEDSIDE
[2019-03-29] MEDS: buPROPion HCL 150 MG TABLET.SA PO SCH (09:59)
--- NOTE | 2019-03-29 12:00 | NUR ---
AMBULATES WITH PT PATIENT AMBULATES WITH PT. USING FWW TOLERATED WELL BUT STILL NEEDS OXYGEN , ADVISED TO REFRAIN FEEDING PATIENT WHEN SHE STARTED HAVING SHORTNESS OF BREATH , IS AWARE
[2019-03-29 12:25] VITALS: BP_SYST 158
[2019-03-29 12:31] VITALS: BP_SYST 147
--- NOTE | 2019-03-29 14:00 | NUR ---
DISCHARGE REPORT CALLED LIVIER GARCIA IN [place] AND REPORT GIVEN , PATIENT WILL BE ON 2 PO ATB TO VERIFY WITH THE DR REGARDING LEVAQUIN AND AZITROMYCIN , FAMILY AT BEDSIDE AWARE OF THE DC ORDERS AND FULLY UNDERSTOOD PLAN OF DC CARE
--- NOTE | 2019-03-29 15:00 | NUR ---
D/C Patient Patient given medication reconciliation form and D/C instructions. Exit Care provided. Patient verbalized understanding. MD discussed with patient the results and treatment provided. Ambulatory withslow steady gaiT uses [facility] for discharge to snf. Patient in stable condition, ID band removed. IV catheter removed, intact and dressing applied, no active bleeding. Rx of(reconcilled) given. Patient educated on pain management. All belongings sent with patient.
[2019-03-29 16:05] VITALS: BP_SYST 153
== END 2019-03-29 15:00 | DRG 871 ==
LOC: SED 18:30 → SIC 03-26 00:43 → STU 03-27 16:55 → SMU 03-28 09:37
PROVIDERS: ADMIT Internal Medicine Hospice and Palliative Medicine; ATTEND Internal Medicine Hospice and Palliative Medicine
DX: A41.9 Sepsis, unspecified organism (principal); J96.02 Acute respiratory failure with hypercapnia; J69.0 Pneumonitis due to inhalation of food and vomit; J44.0 Chronic obstructive pulmonary disease with (acute) lower respiratory infection; G20 Parkinson's disease; E78.5 Hyperlipidemia, unspecified; K44.9 Diaphragmatic hernia without obstruction or gangrene; Z96.651 Presence of right artificial knee joint; F32.9 Major depressive disorder, single episode, unspecified; J98.01 Acute bronchospasm; R13.10 Dysphagia, unspecified; Z66 Do not resuscitate; I12.9 Hypertensive chronic kidney disease with stage 1 through stage 4 chronic kidney disease, or unspecified chronic kidney disease; N18.3 Chronic kidney disease, stage 3 (moderate); Z80.3 Family history of malignant neoplasm of breast; Z82.0 Family history of epilepsy and other diseases of the nervous system; Z90.710 Acquired absence of both cervix and uterus; Z95.0 Presence of cardiac pacemaker; Z86.73 Personal history of transient ischemic attack (TIA), and cerebral infarction without residual deficits; Z85.820 Personal history of malignant melanoma of skin; Z88.0 Allergy status to penicillin; Z88.8 Allergy status to other drugs, medicaments and biological substances; Z79.899 Other long term (current) drug therapy
CPT/HCPCS: 36415; 36600; 71045; 71275; 80053; 80202-TC; 81003; 82150-TC; 82550-TC; 82803-TC; 83605; 83690-TC; 83880; 84443-TC; 84484; 85025; 85379; 85610-TC; 85730-TC; 86710; 87040-TC; 87081; 92610-GN; 93005; 93306; 93970; 94640; 94760; 96374; 96375; 96376; 97116-GP; 97530-GP; 99291; G0378; J0360; J0456; J0696; J1030; J1650; J1956; J2060; J2930; J3370; J3480; J7030; J7050; J7512; J7613; Q9967